=== PATIENT | male | born 1950 | race Caucasian/White ===

== ENCOUNTER 2017-05-16 16:41 | Emergency (ER) | payer BC | END 2017-05-16 17:30 | disposition home or self-care (01) | LOC: SCSER 16:41 | DX: J11.1 Influenza due to unidentified influenza virus with other respiratory manifestations (principal); I10 Essential (primary) hypertension | CPT/HCPCS: 87804; 99283 ==

== ENCOUNTER 2018-06-01 14:26 | Outpatient (CLI) | payer MEDICARE, BC ==
[~2018-06-01 14:26] MED LIST: Gadobenate Dimeglumine 529 MG/1 ML (20ML VIAL) ONE
--- NOTE | 2018-06-02 09:57 | MRI ---
MRI OF THE PELVIS WITH AND WITHOUT CONTRAST: INDICATION: Elevated PSA. COMPARISON: None. TECHNIQUE: Multiplanar, multisequence MR images were obtained of the pelvis with and without contrast utilizing 20 cc of MultiHance. The examination was evaluated on a separate [employer] work station for multiperim etric evaluation. FINDINGS: The prostate measures 5.9 x 5.4 x 5.8 cm giving estimated prostatic volume of 90.15 cc. No area of restricted diffusion is seen within the peripheral zone suspicious for malignancy. There are numerous heterogeneous BPH nodules seen within the central gland and one protruding into th e urinary base. No suspicious T2 signal abnormality is seen involving the central zone. The visualized seminal vesicles appear within normal limits. The neural vasculature appears within normal limits. No pathologically enlarged lymph nodes are present. There are numerous diverticula involving the colon. The there is a fat-containing right inguinal her christiana. No bone marrow signal abnormality is grossly evident. IMPRESSION: 1. PIRADS category 2 - low (clinically significant cancer is unlikely to be present). 2. Colonic diverticulosis. 3. Fat-containing right inguinal hernia. POS: CET
== END 2018-06-01 14:27 | disposition home or self-care (01) ==
LOC: TBSIIMAG 14:26
PROVIDERS: ATTEND Urology
DX: R97.20 Elevated prostate specific antigen [PSA] (principal); K57.30 Diverticulosis of large intestine without perforation or abscess without bleeding; K40.90 Unilateral inguinal hernia, without obstruction or gangrene, not specified as recurrent
CPT/HCPCS: 72197; 82565; A9579

== ENCOUNTER 2018-08-11 15:53 | Emergency (ER) | payer MEDICARE, BC ==
[2018-08-11] MEDS ORDERED: Diazepam 5 MG TAB ONE (16:13)
[2018-08-11] MEDS ORDERED: Acetaminophen 500 MG TAB ONE (16:13)
--- NOTE | 2018-08-11 16:59 | RAD ---
FRadiograph lumbar spine 3 views: HISTORY: 67-year-old male with low back pain for 2 weeks COMPARISON: None FINDINGS: There are 5 lumbar-type vertebrae. Vertebral body heights are maintained. Loss of lordosis suggestive of muscle spasm. Small posterior marginal osteophytes at all levels. No high-grade disc space narrow ing at any level. Mild disc space narrowing at L5-S1. No spondylolisthesis. IMPRESSION: Degenerative disc changes at L5-S1, at least mild. Loss of lordosis suggestive of muscle spasm.
== END 2018-08-11 17:27 | disposition home or self-care (01) ==
LOC: SCSER 15:53
DX: M62.830 Muscle spasm of back (principal); I10 Essential (primary) hypertension
CPT/HCPCS: 72100

== ENCOUNTER 2020-03-18 06:44 | Outpatient (CLI) | payer MEDICARE, BC ==
[2020-03-18 11:42] LABS: Hemoglobin 13.6 g/dL (14.0-18.0); Mean Corpuscular HGB CONC 32.1 G/DL (32.0-36.0); Mean Corpuscular Hemoglobin 29.5 PG (27.0-33.0); Mean Platelet Volume 9.7 fl (7.4-10.4); Platelet Count 245 10x3/uL (130-400); RBC Distribution Width 13.7 % (11.5-14.5); Red Blood Cell (RBC) Count 4.61 10x6/uL (4.40-5.80)
[2020-03-18 12:01] LABS: PTT 29.1 sec (22.0-33.0); Prothrombin Time 10.2 sec (9.5-12.1)
[2020-03-18 12:23] LABS: Bilirubin Neg (Negative); Blood, Urine Negative (Negative); Clarity Clear (Clear); Glucose, Urine (Dipstick) 100 mg/dL (Negative); Ketone, Urine Negative (Negative); Leukocyte Negative (Negative); Nitrite Negative (Negative); Protein, Urine (Dipstick) Negative (Neg-Trace); Urobilinogen Normal mg/dL (Less than 2)
[2020-03-18 12:41] LABS: Anion Gap 19 mmol/L (10-20); BUN (Urea Nitrogen) 23 mg/dL (8.4-25.7); Calc. Creatinine Clearance 0 mL/min (70-130); Calcium 9.2 mg/dL (7.8-10.44); Carbon Dioxide 23 mmol/L (23-31); Chloride 102 mmol/L (98-107); Estimated GFR-MDRD 65; Glucose 160 mg/dL (80-115); Potassium 3.9 mmol/L (3.5-5.1); Sodium 140 mmol/L (136-145)
[2020-03-18 12:54] LABS: RBC/HPF 0-3 HPF (0-3); Squamous Epithelial 0-3 HPF (0-3); WBC/HPF None Seen HPF (0-3)
[2020-03-18 12:55] LABS: Bacteria/HPF Rare-Few HPF (None Seen)
--- NOTE | 2020-03-18 23:46 | EKG ---
Test Reason : Blood Pressure : / mmHG Vent. Rate : 080 BPM Atrial Rate : 080 BPM P-R Int : 166 ms QRS Dur : 086 ms QT Int : 390 ms P-R-T Axes : 058 021 051 degrees QTc Int : 449 ms Normal sinus rhythm Normal ECG Confirmed by Yulissa CASTELAN ([id number]) on 03/18/2020 11:46:02 PM Referred By: VALENCIA Confirmed By:Yulissa CASTELAN
[2020-03-19 12:56] LABS: SARS-CoV-2 MS2 Positive; SARS-CoV-2 N Gene Negative; SARS-CoV-2 S Gene Negative; SARS-CoV-2 by NAA Not Detected (NotDetected); SARS-CoV-2 orf1ab Negative
== END 2020-03-18 06:45 | disposition home or self-care (01) ==
LOC: LABBT 06:44
PROVIDERS: ATTEND Urology
DX: Z01.818 Encounter for other preprocedural examination (principal); Z20.828 Contact with and (suspected) exposure to other viral communicable diseases; N40.1 Benign prostatic hyperplasia with lower urinary tract symptoms; R97.20 Elevated prostate specific antigen [PSA]; N52.1 Erectile dysfunction due to diseases classified elsewhere; E11.42 Type 2 diabetes mellitus with diabetic polyneuropathy; E11.69 Type 2 diabetes mellitus with other specified complication
CPT/HCPCS: 80048; 81001; 85027; 85610; 85730; 87086; 93005; U0003; 87635; 93010

== ENCOUNTER 2020-03-21 08:09 | Day surgery (SDC) | payer MEDICARE, BC ==
[2020-03-20 12:05] VITALS: BMI 31.1
[2020-03-21] MEDS ORDERED: Levofloxacin 500 mg/D5W 100 ml Premix Bag ONE (08:33)
[2020-03-21] MEDS ORDERED: PROPOFOL 200 MG/20 ML VIAL ONE (10:36)
[2020-03-21] MEDS ORDERED: PROPOFOL 40 ML ONE (10:50)
[2020-03-21] MEDS ORDERED: Fentanyl 100 MCG/2 ML VIAL ONE ×2 (10:50→11:09)
--- NOTE | 2020-03-21 13:03 | OP ---
DATE OF PROCEDURE: 03/21/2020 SERVICE: Urology. PREOPERATIVE DIAGNOSES: Benign prostatic hypertrophy with urinary obstruction. POSTOPERATIVE DIAGNOSES: Benign prostatic hypertrophy with urinary obstruction. PROCEDURE PERFORMED: UroLift with 6 implants. INDICATIONS FOR PROCEDURE: Mr. Lujan is a 69-year-old white male with BPH and urinary obstruction. Cystoscopy had demonstrated that he did have an enlarged prostate with intravesical median lobe. Due to techniques that were explained, I counseled the patient about doing a UroLift with attention to the median lobe with explanation that the median lobe could not be removed but just moved over to the side. We discussed the full course as well as risks and benefits and he did agree to proceed forward. DESCRIPTION OF PROCEDURE: After identification of armband and verification of consent, the patient was brought back to the operating room where he underwent total intravenous anesthesia. He was then placed in a dorsal lithotomy position and prepped and draped in usual sterile fashion. After appropriate time-out, a lubricated 21-Mexican rigid cystoscope with visual obturator was passed through the urethra into the bladder. The prostate was hypertrophic and previously had been demonstrated on outpatient cystoscopy. The median lobe showed a larger crevice and sulcus on the patient's left side indicating that this is the direction that we would move the median lobe over. The visual obturator was then switched out for the UroLift implantation device. The first implant was placed at the patient's left bladder neck, taking care to retract into the prostate approximately 1.5 to 2 cm away from the bladder neck to avoid bladder neck implantation. Lateral compression was then achieved with anterior elevation. The blue safety was released and then the blue trigger used to deploy the Nitinol needle. Compression was achieved and then the capsular tab and tension set with a bauer trigger. The UroLift was then advanced forward until the white line could be seen in the keyhole and then the urethral end piece deployed with blue trigger on the back. This then resulted in a nice anterior and lateral compression of the prostate on the left base. We then repeated the same procedure on the right base and again at the left and right apex, which resulted in a nice channel. However, the median lobe was still obstructive using the sulcus previously defined on the patient's left side, the median lobe was squeezed over to the patient's right side and taking care to be far enough back so that the UroLift needle would not implant into the bladder. The median lobe was squeezed over the patient's right. 30 degrees of compression was achieved in a downward direction and then a UroLift implant fired in that direction. This resulted in significant flattening of the median lobe, but there was still a bulge on the patient's more anterior aspect of the median lobe, which required another implant for a total of 6 implants used. At this point, it did appear the prostate was wide open. Satisfied that the prostatic urethra was wide enough open, I felt this was enough and the cystoscope was then removed. An 18-Mexican Duke catheter was placed in the patient's bladder with 10 mL of sterile water in the balloon. B and O suppository were placed. The patient was then taken out of positioning, awakened, and taken back to Day Stay for recovery in stable condition. COMPLICATIONS: None. ESTIMATED BLOOD LOSS: Minimal. RETAINED TUBES AND DRAINS: An 18-Mexican Duke catheter. SPECIMENS: None. NUMBER OF IMPLANTS USED: Six. DISPOSITION: The patient will undergo a void trial assuming his urine clears up adequately. If he is able to void, he will then be discharged home without a catheter and I will see him on an outpatient basis. If he has to go home with a catheter, I will see him on Tuesday for a nursing visit where he will undergo a void trial. Job ID: [id number]
[2020-03-21] MEDS ORDERED: traMADol HCl 50 MG TAB ONE ×2 (14:06→16:56)
[2020-03-21] MEDS ORDERED: Oxybutynin 5 MG TAB ONE (16:57)
== END 2020-03-21 18:10 | disposition home or self-care (01) ==
LOC: SDC 08:09
PROVIDERS: ATTEND Urology
PROC: 0T7D8DZ Dilation of Urethra with Intraluminal Device, Via Natural or Artificial Opening Endoscopic (ICD-10-PCS; principal; 2020-03-21)
DX: N40.1 Benign prostatic hyperplasia with lower urinary tract symptoms (principal); N13.8 Other obstructive and reflux uropathy; N52.1 Erectile dysfunction due to diseases classified elsewhere; E11.42 Type 2 diabetes mellitus with diabetic polyneuropathy; I10 Essential (primary) hypertension; M19.90 Unspecified osteoarthritis, unspecified site; Z79.84 Long term (current) use of oral hypoglycemic drugs; Z79.899 Other long term (current) drug therapy
CPT/HCPCS: C1889; C9740; J1956; J2704; J3010